=== PATIENT | female | born 1995 | race Caucasian/White ===

== ENCOUNTER 2024-08-03 04:15 | Inpatient (IN) ==
[2024-08-03 06:19] LABS: Hematocrit 37.1 % (35-45); Hemoglobin 12.8 g/dL (11.5-14.3); Mean Corpuscular Hemoglobin 31.1 pg (27-33); Mean Corpuscular Hgb Conc 34.6 g/dL (31-36); Mean Corpuscular Volume 89.8 fL (80-97); Mean Platelet Volume 10.4 fL (7.5-11.2); Platelet Count 203 10^3/uL (150-450); Red Blood Count 4.13 10^6/uL (3.63-4.92); Red Cell Distribution Width 13.9 % (12-17); White Blood Count 12.7 10^3/uL (3.8-11.8)
[2024-08-03 06:38] LABS: ABS Eosinophils 0.1 10^3/uL (0.0-0.5); ABS Lymphocytes 2.8 10^3/uL (1.0-4.8); ABS Monocytes 1.7 10^3/uL (0.0-0.9); ABS Neutrophils 8.2 10^3/uL (1.5-7.6); Eosinophil % 0.8 %; Lymphocyte % 21.6 %
[2024-08-03] MEDS: Prochlorperazine 5 mg/ml 2 ml VIAL (10 mg) IV PRN (08:21)
[2024-08-03] MEDS: Nalbuphine 10 MG/ML 1 ML VIAL IV PRN (08:27)
[2024-08-03 11:27] LABS: Urine Appearance Clear; Urine Bilirubin Negative (Negative); Urine Blood Negative (Negative); Urine Color Light-Yellow; Urine Glucose Negative (Negative); Urine Ketones Negative (Negative); Urine Nitrite Negative (Negative); Urine Protein Negative (Negative); Urine Urobilinogen Negative (Negative)
[2024-08-03] MEDS ORDERED: Lidocaine 1% VIAL 10 MG/ML 30 ML VIAL INJ PRN (11:38)
[2024-08-03 12:28] LABS: Urine Benzodiazepine Screen None Detected (None Detect); Urine Cannabinoids Screen None Detected (None Detect); Urine Opiates Screen None Detected (None Detect)
[2024-08-03] MEDS ORDERED: Phenylephrine 40 mcg/mL 10mL (400mcg) SYRINGE IV PUSH PRN ×2 (17:04)
[2024-08-03] MEDS ORDERED: Sodium Citrate/Citric Acid LIQ 15 ML UDC PO PRN (17:04)
[2024-08-03] MEDS: Lactated Ringers 1000 ml BAG 1,000 ML IV ONE ×2 (18:08→18:09)
[2024-08-03] MEDS: Oxytocin in LR 20,000 MILLI.UNIT/1,000 ML BAG IV SCH (18:10)
[2024-08-03] MEDS: OBEPIDURAL (200 ML) 200 ML EPIDURAL ONE (18:11)
[2024-08-03] MEDS: Lactated Ringers 1000 ml BAG 1,000 ML IV SCH (19:04)
[2024-08-03] MEDS ORDERED: RHO D Immune Globulin (HUMAN) 300 MCG = 1,500 I.U. INJ IM PRN (23:41)
[2024-08-03] MEDS ORDERED: Lactated Ringers 1000 ml BAG 1,000 ML IV SCH (23:45)
[2024-08-04] MEDS: Dibucaine 1% OINT 28.35 GM TUBE PR PRN (01:23)
[2024-08-04] MEDS: Witch Hazel PAD JAR TOPICAL PRN (01:23)
[2024-08-04] MEDS: Oxytocin in LR 20,000 MILLI.UNIT/1,000 ML BAG IV SCH (03:04)
[2024-08-04] MEDS: Phenylephrine 40 mcg/mL 10mL (400mcg) SYRINGE ONE (04:22)
[2024-08-04] MEDS: Buffered Lidocaine 1% SYRIN 1 ml INTRADERM ONE (04:22)
[2024-08-04] MEDS: Lidocaine 1.5% EPI 1:200,000 30 ML SDV ONE (04:22)
[2024-08-04 08:03] LABS: ABS Eosinophils 0.1 10^3/uL (0.0-0.5); ABS Lymphocytes 2.4 10^3/uL (1.0-4.8); ABS Monocytes 1.4 10^3/uL (0.0-0.9); ABS Neutrophils 10.2 10^3/uL (1.5-7.6); Eosinophil % 0.5 %; Hematocrit 31.7 % (35-45); Lymphocyte % 17.3 %; Mean Corpuscular Hemoglobin 31.3 pg (27-33); Mean Corpuscular Hgb Conc 34.7 g/dL (31-36); Mean Corpuscular Volume 90.1 fL (80-97); Mean Platelet Volume 9.9 fL (7.5-11.2); Platelet Count 148 10^3/uL (150-450); Red Blood Count 3.52 10^6/uL (3.63-4.92); Red Cell Distribution Width 13.9 % (12-17); White Blood Count 14.2 10^3/uL (3.8-11.8)
[2024-08-04] MEDS: OBEPIDURAL (200 ML) 200 ML EPIDURAL SCH (19:26)
[2024-08-05 09:37] VITALS: BP 120/70
[2024-08-05] MEDS: Measles, Mumps,Rubella VACC 0.5 ML/VIAL SUBCUT ONE (11:52)
== END 2024-08-05 13:47 | disposition home or self-care (01) | DRG 560 ==
LOC: MCHOBOUT 04:15 → MCHOB 11:40
PROVIDERS: ADMIT Midwife; ATTEND Midwife